=== PATIENT | male | born 1990 | race Two or more races ===

== ENCOUNTER 2024-07-22 16:26 | Inpatient (IN) | payer OTHER ==
[~2024-07-22] VITALS: Ht 172.7 cm; Wt 78.0 kg
--- NOTE | 2024-07-22 16:46 | NUR ---
SE RECIBE PTE ALERTA Y ORIENTADO EL CUAL REFIERE VENIR POR CONSTIPACION Y DOLOR ABDOMINAL DESDE HACE VARIOS JAIME. SE MIDEN S/V Y SE UBICA.
[2024-07-22] MEDS ORDERED: 0.9 % SODIUM CHLORIDE 1,000 ML IV STA (17:26)
[2024-07-22 17:47] LABS: HEMATOCRIT 43.7 % (39.0-48.0); MEAN CELL VOLUME 90.9 fL (80.0-100.00); MEAN CORPUSCULAR HEMOGLOBIN 31.1 pg (27.00-32.0); MEAN CORPUSCULAR HGB CONC 34.2 g/dl (32.0-36.0); PLATELET COUNT 303 K/uL (150-450); RED BLOOD COUNT 4.81 M/uL (4.00-6.00); RED CELL DISTRIBUTION WIDTH 12.4 % (11.5-14.5)
--- NOTE | 2024-07-22 17:54 | NUR ---
MEDICO DE TURNO EVALUAP PACIENTE. SE ORIENTA SOBRE TX MEDICO, REFIERE ENTENDER. SE REALIZAN MUESTRAS DE LABORATORIO BAJO MEDIDAS ASEPTICAS. SE ADMINISTRA IV'S ALIA ORDEN MEDICA. PTE MANEJADO POR . PENDIENTE RE-EVALUACION MEDICA.
[2024-07-22 18:29] LABS: ALBUMIN 3.9 gm/dL (3.4-5.0); BILIRUBIN TOTAL 0.95 mg/dL (0.3-1.2); CALCIUM 9.6 mg/dL (8.5-10.1); CREATININE SERUM 0.86 mg/dL (0.70-1.30); GFR 101.79; GLOBULINA 4.9 G/DL (2.4-3.5); POTASSIUM 3.67 mEq/L (3.5-5.1); TOTAL PROTEIN 8.8 gm/dL (6.4-8.2)
[2024-07-22] MEDS ORDERED: PIPERACILLIN/TAZOBACTAM SODIUM 3.375 GM VIAL IV ONE (21:30)
[2024-07-22] MEDS ORDERED: 0.9 % SODIUM CHLORIDE 1,000 ML IV SCH (23:45)
[2024-07-22] MEDS ORDERED: MORPHINE SULFATE 4 MG/ML CARTRIDGE IV ONE (23:45)
[2024-07-22] MEDS ORDERED: ONDANSETRON HCL 4 MG in 0.9 % SODIUM CHLORIDE 50 ML IV PRN (23:45)
[2024-07-22] MEDS ORDERED: MORPHINE SULFATE 4 MG/ML CARTRIDGE IV PRN (23:45)
[2024-07-22] MEDS ORDERED: HYOSCYAMINE SULFATE 0.125 MG TAB.SUBL PO ONE (23:45)
[2024-07-22 23:51] VITALS: BP 109/68
[2024-07-23] MEDS ORDERED: PIPERACILLIN/TAZOBACTAM SODIUM 3.375 GM in DEXTROSE 5 % IN WATER 100 ML IV SCH
[2024-07-23 00:54] LABS: INR 1.08; PARTIAL THROMBOPLASTIN TIME 32.8 SECONDS (22.0-34.0); PROTHROMBIN TIME 11.7 SECONDS (9.0-11.5)
[2024-07-23 02:07] LABS: PH,URINE 6.5 (5.0-8.0); URINE APPEARANCE Clear; URINE BILIRRUBIN Negative (NEGATIVE); URINE BLOOD Trace; URINE COLOR Yellow; URINE GLUCOSE Negative (NEGATIVE); URINE KETONE 15 (NEGATIVE); URINE LEUKOCYTE Negative; URINE NITRATE Negative; URINE PROTEIN Negative (NEGATIVE)
[2024-07-23 02:08] LABS: URINE RBC 13.2 uL (0.0-20.8)
[2024-07-23 02:11] LABS: URINE BACTERIA 3.7 uL (0.0-1933); URINE EPITHELIAL CELLS 0.9 uL (0.0-38.8); URINE WBC 0.9 uL (0.0-23.2)
[2024-07-23 03:24] VITALS: BP 117/67; O2SAT 97
[2024-07-23 08:49] VITALS: BP 90/55
[2024-07-23] MEDS ORDERED: ENOXAPARIN SODIUM 40 MG/0.4 ML SYRINGE SUBCUTANEO SCH (09:00)
[2024-07-23] MEDS ORDERED: FAMOTIDINE/PF 20 MG in 0.9 % SODIUM CHLORIDE 8 ML IV PUSH SCH (09:00)
[2024-07-23] MEDS ORDERED: 0.9 % SODIUM CHLORIDE 1,000 ML IV STA (14:38)
[2024-07-23 16:22] VITALS: BP 95/61
[2024-07-24 01:50] VITALS: BP 105/66; O2SAT 97
[2024-07-24 05:41] LABS: HEMATOCRIT 36.2 % (39.0-48.0); HEMOGLOBIN 12.5 g/dL (13-16.00); MEAN CELL VOLUME 91.1 fL (80.0-100.00); MEAN CORPUSCULAR HEMOGLOBIN 31.4 pg (27.00-32.0); MEAN CORPUSCULAR HGB CONC 34.5 g/dl (32.0-36.0); PLATELET COUNT 277 K/uL (150-450); RED BLOOD COUNT 3.98 M/uL (4.00-6.00); RED CELL DISTRIBUTION WIDTH 12.4 % (11.5-14.5)
[2024-07-24 06:26] LABS: ALBUMIN 3.1 gm/dL (3.4-5.0); BILIRUBIN TOTAL 0.84 mg/dL (0.3-1.2); CALCIUM 8.9 mg/dL (8.5-10.1); CREATININE SERUM 0.68 mg/dL (0.70-1.30); GFR 132.7; GLOBULINA 3.6 G/DL (2.4-3.5); POTASSIUM 4.31 mEq/L (3.5-5.1); TOTAL PROTEIN 6.7 gm/dL (6.4-8.2)
[2024-07-24 09:10] VITALS: BP 97/52; O2SAT 97
[2024-07-24 16:00] VITALS: BP 109/71; O2SAT 100
[2024-07-24] MEDS ORDERED: DOCUSATE SODIUM 100MG CAP PO SCH (21:34)
[2024-07-24] MEDS ORDERED: MINERAL OIL 30 ML BLIST.PACK PO STA (21:35)
[2024-07-24] MEDS ORDERED: METOCLOPRAMIDE HCL 5 MG/ML VIAL IV STA (21:35)
[2024-07-24] MEDS ORDERED: RINGERS SOLUTION,LACTATED 1,000 ML IV SCH (21:45)
[2024-07-25 01:58] VITALS: BP 116/74; O2SAT 98
[2024-07-25 09:52] LABS: CALCIUM 9.2 mg/dL (8.5-10.1); CREATININE SERUM 0.7 mg/dL (0.70-1.30); GFR 128.33; MAGNESIUM 2.2 mg/dL (1.8-2.4); POTASSIUM 3.69 mEq/L (3.5-5.1)
[2024-07-25 10:06] LABS: C-REACTIVE PROTEIN 4.1 MG/DL (0.00-0.29)
[2024-07-25 11:13] VITALS: BP 108/69; O2SAT 97
[2024-07-25 17:39] VITALS: BP 112/67
[2024-07-26 01:45] VITALS: BP 104/70; O2SAT 96
[2024-07-26 06:20] LABS: HEMATOCRIT 36.7 % (39.0-48.0); HEMOGLOBIN 12.7 g/dL (13-16.00); MEAN CELL VOLUME 89.3 fL (80.0-100.00); MEAN CORPUSCULAR HEMOGLOBIN 30.8 pg (27.00-32.0); MEAN CORPUSCULAR HGB CONC 34.5 g/dl (32.0-36.0); PLATELET COUNT 327 K/uL (150-450); RED BLOOD COUNT 4.11 M/uL (4.00-6.00); RED CELL DISTRIBUTION WIDTH 12.8 % (11.5-14.5)
[2024-07-26 07:33] LABS: CREATININE SERUM 0.74 mg/dL (0.70-1.30); GFR 120.36; MAGNESIUM 2.1 mg/dL (1.8-2.4); POTASSIUM 3.78 mEq/L (3.5-5.1)
[2024-07-26 08:38] VITALS: BP 90/50
[2024-07-26] MEDS ORDERED: METRONIDAZOLE500 MG PO (11:20)
[2024-07-26] MEDS ORDERED: AMOX-CLAV 875-1 EAC1 PO (11:20)
[2024-07-26] MEDS ORDERED: INTESTINEX680 M1 PO (11:21)
[2024-07-26] MEDS ORDERED: LEVSIN0.125 MG PO (11:22)
[2024-07-26] MEDS ORDERED: COLACE100 MG PO (11:23)
== END 2024-07-26 16:45 | disposition home or self-care (01) | DRG 391 ==
LOC: ER 16:28 → MEDJ 23:40
PROVIDERS: Emergency Medicine; General Practice; Internal Medicine; ADMIT Internal Medicine; ATTEND Internal Medicine
PROC: BW21YZZ Computerized Tomography (CT Scan) of Abdomen and Pelvis using Other Contrast (ICD-10-PCS; principal; 2024-07-22)
DX: K57.92 Diverticulitis of intestine, part unspecified, without perforation or abscess without bleeding (principal); A41.9 Sepsis, unspecified organism; K63.1 Perforation of intestine (nontraumatic); D72.829 Elevated white blood cell count, unspecified